=== PATIENT | male | born 1945 | race Caucasian/White ===

== ENCOUNTER → 2022-12-08 | Outpatient (CLI) | payer SELFPAY ==
[2022-12-08 09:28] VITALS: BP 145/74
[2022-12-08 09:33] VITALS: BP 145/88
== END ==
LOC: SDC 08:17
PROVIDERS: ATTEND Nurse Practitioner Family
DX: J18.9 Pneumonia, unspecified organism (principal); Z79.2 Long term (current) use of antibiotics
CPT/HCPCS: 36410; 76937; C1751

== ENCOUNTER → 2022-12-10 | Outpatient (REF) | payer SELFPAY | LOC: LAB 00:41 | PROVIDERS: ATTEND Internal Medicine | DX: Z01.89 Encounter for other specified special examinations (principal) | CPT/HCPCS: 36415; 80202 ==

== ENCOUNTER 2022-12-29 14:25 | Inpatient (IN) | payer MEDICARE ==
[2022-12-29] VITALS (11 sets, daily range): BP systolic 108–175; BP diastolic 62–82
[~2022-12-29] VITALS: Ht 172.7 cm; Wt 169.7 kg
[2022-12-29] MEDS ORDERED: NS IV 1000 ML 1,000 ML IV SCH (14:45)
[2022-12-29] MEDS ORDERED: CEFEPIME INJECTION 1,000 MG in NS (IVPB) 50 ML IV ONE (14:45)
--- NOTE | 2022-12-29 14:48 | ED General ---
General Chief Complaint: General Problems/Pain Stated Complaint: PNEUMONIA Source of Information: Patient Exam Limitations: No Limitations History of Present Illness Date Seen by Provider: Dec 29, 2022 Time Seen by Provider: 14:44 Initial Comments Patient is a 77-year-old male with a history of acute respiratory failure with hypoxia, Parkinson's disease, essential hypertension, lipidemia, BPH with frequent urinary tract infections, who was brought to the ED by EMS [facility] for elevated white blood count. Patient Had lab work drawn today had a white blood count of 20.4. Patient was diagnosed with pneumonia a few months ago. Has been on several rounds of antibiotics since November. He also was placed on prednisone in November and December for a cough. He had a chest x-ray performed on December 19 that showed left basilar pneumonia. He is not currently on any antibiotics or steroids at this time. He has been using a nebulizer machine at [facility] re[facility] to help with his cough and shortness of breath. He states the coughing seemed to be getting proving until yesterday with con tinuous cough. Some shortness of breath. Does wear 4 L at [facility]. Currently on 5 L on arrival. Denies of any specific chest pain, abdominal pain, fever, vomiting or diarrhea headache, sore throat, leg swelling, ear pain, abdominal pain. He states he was recently admitted to [facility] for acute respiratory failure with hypoxia. He states he has been rehabbing since that discharge. He also reports frequent urination over the past few days. Patient is alert and orient x3. Allergies and Home Medications Allergies Coded Allergies: No Known Drug Allergies (Unverified , 12/29/22) Patient Home Medication List Home Medication List Reviewed: Yes Acetaminophen (Tylenol) 325 Mg Tablet, 650 MG PO Q6H PRN for PAIN-MILD (1-4) OR TEMPATURE, (Reported) Entered as Reported by: ROSMERY CONCEPCION on 12/30/22933 Last Action: Reviewed Albuterol Sulfate (Albuterol Sulfate) 2.5 Mg/0.5 Ml Vial.neb, 2.5 MG INH TID, (Reported) Entered as Reported by: ROSMERY CONCEPCION on 12/30/22933 Last Action: Reviewed Amlodipine Besylate (Amlodipine Besylate) 10 Mg Tablet, 10 MG PO HS, (Reported) Entered as Reported by: ROSMERY CONCEPCION on 12/30/22933 Last Action: Reviewed Bisacodyl (Bisacodyl) 10 Mg Supp.rect, 10 MG RC DAILY PRN for CONSTIPATION-4TH LINE, (Reported) Entered as Reported by: ROSMERY CONCEPCION on 12/30/22933 Last Action: Reviewed Calcium Carbonate (Calcium Carbonate) 200 Mg Calcium (500 Mg) Tab.chew, 500 MG PO Q6H PRN for REFLUX, (Reported) Entered as Reported by: ROSMERY CONCEPCION on 12/30/22933 Last Action: Reviewed Cyanocobalamin (Vitamin B-12) (Vitamin B-12) 1,000 Mcg Tablet, 1,000 MCG PO 0900, (Reported) Entered as Reported by: ROSMERY CONCEPCION on 12/30/22933 Last Action: Reviewed Docusate Sodium (Docusate Sodium) 100 Mg Capsule, 100 MG PO 0900, (Reported) Entered as Reported by: ROSMERY CONCEPCION on 12/30/22933 Last Action: Reviewed Finasteride (Finasteride) 5 Mg Tablet, 5 MG PO 0900, (Reported) Entered as Reported by: ROSMERY CONCEPCION on 12/30/22933 Last Action: Reviewed Guaifenesin (Mucinex) 600 Mg Tab.er.12h, 600 MG PO BID PRN for COUGH/CONGESTION, (Reported) Entered as Reported by: ROSMERY CONCEPCION on 12/30/22933 Last Action: Reviewed Heparin Sodium,Porcine/Pf (Heparin Lock Flush 10 Units/ml) 10 Unit/Ml Vial, 3 ML IV BID, (Reported) Entered as Reported by: ROSMERY CONCEPCION on 12/30/22933 Last Action: Reviewed Hydrocodone/Acetaminophen (Hydrocodone-Acetamin 5-325 mg) 5 Mg-325 Mg Tablet, 1 TAB PO Q8H PRN for PAIN-MODERATE (5-7), (Reported) Entered as Reported by: ROSMERY CONCEPCION on 12/30/22933 Last Action: Reviewed Ipratropium/Albuterol Sulfate (Iprat-Albut 0.5-3(2.5) mg/3 ml) 0.5 Mg-3 Mg (2.5 Mg Base)/3 Ml Ampul.neb, 3 ML IH Q4H PRN for SHORTNESS OF BREATH, (Reported) Entered as Reported by: ROSMERY CONCEPCION on 12/30/22933 Last Action: Reviewed Lactulose (Lactulose) 20 Gram/30 Ml Solution, 30 ML PO DAILY PRN for CONSTIPATION-3RD LINE, (Reported) Entered as Reported by: ROSMERY CONCEPCION on 12/30/22933 Last Action: Reviewed Loratadine (Loratadine) 10 Mg Tablet, 10 MG PO 1000, (Reported) Entered as Reported by: ROSMERY CONCEPCION on 12/30/22933 Last Action: Reviewed Melatonin (Melatonin) 3 Mg Tablet, 6 MG PO HS PRN for INSOMNIA, (Reported) Entered as Reported by: ROSMERY CONCEPCION on 12/30/22933 Last Action: Reviewed Montelukast Sodium (Montelukast Sodium) 10 Mg Tablet, 10 MG PO DAILY, (Reported) Entered as Reported by: ROSMERY CONCEPCION on 12/30/22933 Last Action: Reviewed Ondansetron (Ondansetron Odt) 4 Mg Tab.rapdis, 4 MG SL Q6H PRN for NAUSEA/VOMITING-1ST LINE, (Reported) Entered as Reported by: ROSMERY CONCEPCION on 12/30/22933 Last Action: Reviewed Pantoprazole Sodium (Pantoprazole Sodium) 40 Mg Tablet.dr, 40 MG PO 0600, (Reported) Entered as Reported by: ROSMERY CONCEPCION on 12/30/22933 Last Action: Reviewed Polyethylene Glycol 3350 (Miralax) 17 Gram Powd.pack, 17 GM PO 0900, (Reported) Entered as Reported by: ROSMERY CONCEPCION on 12/30/22933 Last Action: Reviewed Rivaroxaban (Xarelto) 2.5 Mg Tablet, 2.5 MG PO BID, (Reported) Entered as Reported by: ROSMERY CONCEPCION on 12/30/22933 Last Action: Reviewed Ropinirole HCl (Ropinirole HCl) 1 Mg Tablet, 1 MG PO 2300, (Reported) Entered as Reported by: ROSMERY CONCEPCION on 12/30/22933 Last Action: Reviewed Sodium Chloride 0.9 % (Flush) ([place] Sodium Chlor Flush) 0.9 % Syringe, 10 ML IJ BID, (Reported) Entered as Reported by: ROSMERY CONCEPCION on 12/30/22942 Last Action: Reviewed Sulfamethoxazole/Trimethoprim (Bactrim Ds Tablet) 1 Each Tablet, 1 EACH PO BID Prescribed by: MARKELL SANTOS on 12/30/22 1146 Tamsulosin HCl (Flomax) 0.4 Mg Cap, 0.4 MG PO HS, (Reported) Entered as Reported by: ROSMERY CONCEPCION on 12/30/22 0934 Last Action: Reviewed Review of Systems Review of Systems Constitutional: No chills, No diaphoresis, No malaise; weakness EENTM: No blurred vision, No double vision Respiratory: cough, short of breath Cardiovascular: No chest pain Gastrointestinal: No abdominal pain, No diarrhea, No nausea, No vomiting Genitourinary: No decreased output, No discharge; frequency Musculoskeletal: No back pain, No joint pain, No muscle pain, No neck pain Skin: No change in color, No change in hair/nails Psychiatric/Neurological: Denies Anxiety, Denies Depressed All Other Systems Reviewed Negative Unless Noted: Yes Physical Exam Vital Signs Vital Signs - First Documented 12/29/22 14:25 Temp 37.3 Pulse 77 Resp 18 B/P (MAP) 145/59 (87) Pulse Ox 97 O2 Delivery Nasal Cannula O2 Flow Rate 4.00 Capillary Refill : Height, Weight, BMI Height: '" Weight: lbs. oz. kg; BMI Method: General Appearance: No Apparent Distress, WD/WN Eyes: Bilateral Eye Normal Inspection, Bilateral Eye PERRL, Bilateral Eye EOMI HEENT: PERRL/EOMI, TMs Normal, Normal ENT Inspection, Pharynx Normal Neck: Full Range of Motion, Normal Inspection, Non Tender, Supple Respiratory: Chest Non Tender, Lungs Clear, Normal Breath Sounds, No Accessory Muscle Use Cardiovascular: Regular Rate, Rhythm, No Edema, No Gallop, No JVD Gastrointestinal: Normal Bowel Sounds, No Organomegaly, No Pulsatile Mass Back: Normal Inspection, No CVA Tenderness, No Vertebral Tenderness Extremity: Normal Capillary Refill, Normal Inspection, Normal Range of Motion, Non Tender Neurologic/Psychiatric: Alert, Oriented x3, No Motor/Sensory Deficits, Normal Mood/Affect, lockmaker II-XII Norm as Tested Skin: Normal Color, Warm/Dry Focused Exam Lactate Level 12/29/22 14:25: Lactic Acid Level 1.08 Lactic Acid Level Laboratory Tests Test 12/29/22 14:25 Lactic Acid Level 1.08 MMOL/L (0.50-2.00) Progress/Results/Core Measures Suspected Sepsis SIRS Temperature: Pulse: Respiratory Rate: Laboratory Tests 12/29/22 14:25: White Blood Count 23.1H Blood Pressure / Mean: 12/29/22 14:25: Lactic Acid Level 1.08 Laboratory Tests 12/29/22 14:25: Creatinine 0.73, INR Comment 1.2, Platelet Count 252, Total Bilirubin 0.6 Results/Orders Lab Results Laboratory Tests Test 12/29/22 14:25 12/29/22 15:11 12/29/22 15:34 Range/Units White Blood Count 23.1 H 4.3-11.0 10^3/uL Red Blood Count 3.69 L 4.30-5.52 10^6/uL Hemoglobin 11.8 L 13.3-17.7 g/dL Hematocrit 35 L 40-54 % Mean Corpuscular Volume 95 80-99 fL Mean Corpuscular Hemoglobin 32 25-34 pg Mean Corpuscular Hemoglobin Concent 34 32-36 g/dL Red Cell Distribution Width 12.3 10.0-14.5 % Platelet Count 252 130-400 10^3/uL Mean Platelet Volume 9.4 9.0-12.2 fL Immature Granulocyte % (Auto) 1 % Neutrophils (%) (Auto) 88 H 42-75 % Lymphocytes (%) (Auto) 4 L 12-44 % Monocytes (%) (Auto) 7 0-12 % Eosinophils (%) (Auto) 0 0-10 % Basophils (%) (Auto) 0 0-10 % Neutrophils # (Auto) 20.3 H 1.8-7.8 10^3/uL Lymphocytes # (Auto) 1.0 1.0-4.0 10^3/uL Monocytes # (Auto) 1.6 H 0.0-1.0 10^3/uL Eosinophils # (Auto) 0.1 0.0-0.3 10^3/uL Basophils # (Auto) 0.1 0.0-0.1 10^3/uL Immature Granulocyte # (Auto) 0.1 0.0-0.1 10^3/uL Neutrophils % (Manual) 93 % Lymphocytes % (Manual) 3 % Monocytes % (Manual) 4 % Blood Morphology Comment NORMAL Prothrombin Time 15.2 H 12.2-14.7 SEC INR Comment 1.2 0.8-1.4 Activated Partial Thromboplast Time 45 H 24-35 SEC Sodium Level 132 L 135-145 MMOL/L Potassium Level 4.4 3.6-5.0 MMOL/L Chloride Level 96 L 98-107 MMOL/L Carbon Dioxide Level 27 21-32 MMOL/L Anion Gap 9 5-14 MMOL/L Blood Urea Nitrogen 11 7-18 MG/DL Creatinine 0.73 0.60-1.30 MG/DL Estimat Glomerular Filtration Rate 94 BUN/Creatinine Ratio 15 Glucose Level 107 H 70-105 MG/DL Lactic Acid Level 1.08 0.50-2.00 MMOL/L Calcium Level 9.4 8.5-10.1 MG/DL Corrected Calcium 10.0 8.5-10.1 MG/DL Total Bilirubin 0.6 0.1-1.0 MG/DL Aspartate Amino Transf (AST/SGOT) 14 5-34 U/L Alanine Aminotransferase (ALT/SGPT) 11 0-55 U/L Alkaline Phosphatase 55 40-136 U/L Troponin I < 0.028 <0.028 NG/ML B-Type Natriuretic Peptide 27.7 <100.0 PG/ML Total Protein 6.5 6.4-8.2 GM/DL Albumin 3.3 3.2-4.5 GM/DL Influenza Type A (RT-PCR) Not Detected Not Detecte Influenza Type B (RT-PCR) Not Detected Not Detecte SARS-CoV-2 RNA (RT-PCR) Not Detected Not Detecte Urine Color YELLOW Urine Clarity CLEAR Urine pH 6.5 5-9 Urine Specific [place] <=1.005 1.016-1.022 Urine Protein NEGATIVE NEGATIVE Urine Glucose (UA) NEGATIVE NEGATIVE Urine Ketones NEGATIVE NEGATIVE Urine Nitrite NEGATIVE NEGATIVE Urine Bilirubin NEGATIVE NEGATIVE Urine Urobilinogen 2.0 < = 1.0 MG/DL Urine Leukocyte Esterase 2+ H NEGATIVE Urine RBC (Auto) TRACE-I H NEGATIVE Urine RBC NONE /HPF Urine WBC 25-50 H /HPF Urine Squamous Epithelial Cells 0-2 /HPF Urine Crystals NONE /LPF Urine Bacteria FEW H /HPF Urine Casts NONE /LPF Urine Mucus NEGATIVE /LPF Urine Culture Indicated CULTURE PENDING My Orders Orders - TATIANA DUNHAM Cbc With Automated Diff (12/29/22 14:43) Comprehensive Metabolic Panel (12/29/22 14:43) Blood Culture (12/29/22 14:43) Sputum Culture (12/29/22 14:43) Urinalysis (12/29/22 14:43) Urine Culture (12/29/22 14:43) Protime With Inr (12/29/22 14:43) Partial Thromboplastin Time (12/29/22 14:43) Chest 1 View, Ap/Pa Only (12/29/22 14:43) Ed Iv/Invasive Line Start (12/29/22 14:43) Troponin I [facility] (12/29/22 14:43) Vital Signs Adult Sepsis Patie Q15M (12/29/22 14:43) Lactic Acid Analyzer (12/29/22 14:43) Influenza A And B By Pcr (12/29/22 14:43) Ns Iv 1000 Ml (Sodium Chloride 0.9%) (12/29/22 14:45) Cefepime Injection (Maxipime Injection) (12/29/22 14:45) Covid 19 Inhouse Test (12/29/22 14:43) Bnp [facility] (12/29/22 14:43) Manual Differential (12/29/22 14:25) Ct Angio Chest W (R/O Pe) (12/29/22 16:41) Ed Admission (Communication) (12/29/22 16:42) Iohexol Injection (Omnipaque 350 Mg/Ml 1 (12/29/22 17:00) Ns (Ivpb) (Sodium Chloride 0.9% Ivpb Bag (12/29/22 17:00) Vancomycin Injection (Vancomycin Injecti (12/29/22 17:45) Medications Given in ED Vital Signs/I&O 12/29/22 12/29/22 12/29/22 14:25 14:25 17:48 Temp 37.3 Pulse 77 78 Resp 18 18 B/P (MAP) 145/59 (87) 121/69 Pulse Ox 97 97 O2 Delivery Nasal Cannula Nasal Cannula O2 Flow Rate 4.00 5.00 12/30/22 00:00 Intake Total 1050 ml Balance 1050 ml Capillary Refill : Departure Communication (PCP) Reviewed previous H&P's, lab testing, outpatient H&P's. Differential diagnosis of pneumonia, UTI, CHF patient was admitted to [facility] August 01 2022 secondary to respiratory failure with hypoxia. Patient was admitted and discharged to [place]. Patient was then transferred over to [facility]. Patient states over the past month and a half has been diagnosed with pneumonia. Received IV Rocephin, vancomycin and prednisone with 's some improvement over the past month. Over the past few days increasing cough. Wears 4 L oxygen at home. On arrival EMS increase patient oxygen to 5 L secondary to hypoxia. Patient does not appear tachypneic or increased work of breathing. Patient afebrile. Due to the elevated white blood count from lab work drawn today and recently diagnosed pneumonia. General lab work, blood cultures, lactic acid, COVID, influenza, chest x-ray with cardiac work-up. No known cardiac history. CBC showed white blood count of 23.1. Hemoglobin of 11. Sodium 132, chloride 96. Patient does report frequent urination over the past few days. History of urinary tract infections. Urinalysis was positive for UTI with leukocytes +2, white blood count 25-50. Normal troponin and BNP. COVID influenza negative. Chest x-ray concerning for left pleural effusion, superimposed pneumonia. Patient was given cefepime and vancomycin here in the ED for potential hospital-acquired pneumonia. Due to the elevated white blood count, pneumonia concerning for hospital-acquired patient will be admitted for IV antibiotics. Patient was discussed with Dr. Santos hospitalist. Agreed to accept patient. He recommend CT scan of the chest before admission. Due to this reoccurring pneumonia with pleural effusion rule out other potential etiologies such as mass, abscess. CT scan of the chest was negative for acute abnormality. Patient will be admitted for further evaluation for this elevated white blood count. Treat for UTI Impression Primary Impression: Pneumonia Additional Impressions: UTI (urinary tract infection) Pleural effusion Leukocytosis Disposition: ADMITTED INPATIENT Condition: Stable Admissions Decision to Admit Reason: Admit from ER (General) Decision to Admit/Date: Dec 29, 2022 Time/Decision to Admit Time: 16:41 Departure-Patient Inst. Referrals: CINTHIA LÓPEZ MD (PCP) Primary Care Physician Scripts Sulfamethoxazole/Trimethoprim (Bactrim Ds Tablet) 1 Each Tablet 1 EACH PO BID for 7 Days, #14 TAB Prov: MARKELL SANTOS MD 12/30/22 TATIANA DUNHAM Dec 29, 2022 14:48
[2022-12-29 14:55] LABS: BASOPHILS # (AUTO) 0.1 10^3/uL (0.0-0.1); BASOPHILS % (AUTO) 0 % (0-10); EOSINOPHILS # (AUTO) 0.1 10^3/uL (0.0-0.3); EOSINOPHILS % (AUTO) 0 % (0-10); HEMATOCRIT 35 % (40-54); HEMOGLOBIN 11.8 g/dL (13.3-17.7); LYMPHOCYTES % (AUTO) 4 % (12-44); MEAN CORPUSCULAR HEMOGLOBIN 32 pg (25-34); MEAN CORPUSCULAR HGB CONC 34 g/dL (32-36); MEAN CORPUSCULAR VOLUME 95 fL (80-99); MEAN PLATELET VOLUME 9.4 fL (9.0-12.2); MONOCYTES # (AUTO) 1.6 10^3/uL (0.0-1.0); MONOCYTES % (AUTO) 7 % (0-12); NEUTROPHILS # (AUTO) 20.3 10^3/uL (1.8-7.8); NEUTROPHILS % (AUTO) 88 % (42-75); PLATELET COUNT 252 10^3/uL (130-400); WHITE BLOOD COUNT 23.1 10^3/uL (4.3-11.0)
[2022-12-29 15:00] LABS: ALBUMIN 3.3 GM/DL (3.2-4.5)
[2022-12-29 15:01] LABS: CHLORIDE 96 MMOL/L (98-107); POTASSIUM 4.4 MMOL/L (3.6-5.0); SODIUM 132 MMOL/L (135-145)
[2022-12-29 15:02] LABS: CALCIUM 9.4 MG/DL (8.5-10.1)
[2022-12-29 15:03] LABS: GLUCOSE 107 MG/DL (70-105); TOTAL PROTEIN 6.5 GM/DL (6.4-8.2)
[2022-12-29 15:04] LABS: CARBON DIOXIDE 27 MMOL/L (21-32)
[2022-12-29 15:05] LABS: BILIRUBIN,TOTAL 0.6 MG/DL (0.1-1.0)
[2022-12-29 15:06] LABS: ALKALINE PHOSPHATASE 55 U/L (40-136)
[2022-12-29 15:07] LABS: CREATININE SERUM 0.73 MG/DL (0.60-1.30); GFR ESTIMATED 94
[2022-12-29 15:08] LABS: BUN/CREATININE RATIO 15
[2022-12-29 15:09] LABS: ALANINE AMINOTRANSFERASE 11 U/L (0-55)
[2022-12-29 15:13] LABS: LYMPHOCYTES % (MANUAL) 3 %; MONOCYTES % (MANUAL) 4 %; NEUTROPHILS % (MANUAL) 93 %; RBC MORPH NORMAL
--- NOTE | 2022-12-29 15:14 | Diagnostic Imaging Report ---
Indication: Cough Frontal chest obtained at 3:08 p.m. There is no prior study for comparison. There is cardiomegaly with central vascular congestion. There is a left sided pleural effusion with passive atelectasis or infiltrate in the left base. There is no pneumothorax. Impression: Cardiomegaly with central vascular congestion with moderate-sized left pleural effusion with passive atelectasis versus infiltrate in the left base. Dictated by: Dictated on workstation # [id number]
[2022-12-29 15:48] LABS: BILIRUBIN,URINE NEGATIVE (NEGATIVE); CLARITY,URINE CLEAR; COLOR,URINE YELLOW; GLUCOSE, URINE (UA) NEGATIVE (NEGATIVE); KETONES,URINE NEGATIVE (NEGATIVE); LEUKOCYTE ESTERASE ,URINE 2+ (NEGATIVE); NITRITE,URINE NEGATIVE (NEGATIVE); PH,URINE 6.5 (5-9); PROTEIN,URINE NEGATIVE (NEGATIVE)
[2022-12-29 15:54] LABS: INR 1.2 (0.8-1.4); PROTHROMBIN TIME PATIENT 15.2 SEC (12.2-14.7)
[2022-12-29 16:20] LABS: BACTERIA,URINE FEW /HPF; SQUAMOUS EPITHELIAL CELL,UR 0-2 /HPF; WBC,URINE 25-50 /HPF
[2022-12-29] MEDS ORDERED: NS 100 ML (IVPB) BAG IV ONE (17:00)
[2022-12-29] MEDS ORDERED: IOHEXOL 350 MG/ML 100 ML (OMNIPAQUE 350) VIAL IV ONE (17:00)
[2022-12-29] MEDS ORDERED: VANCOMYCIN INJECTION 1,000 MG in NS (IVPB) 250 ML IV ONE (17:45)
--- NOTE | 2022-12-29 17:48 | Diagnostic Imaging Report ---
INDICATION: Left chest pain and cough. TECHNIQUE: CTA of the thorax is performed after bolus intravenous administration of iodinated contrast. 3D reformatted images are also produced. Automatic exposure controls were utilized to keep dose as low as reasonably achievable. FINDINGS: There is good opacification of pulmonary arteries without intraluminal filling defect to indicate embolism. Thoracic aorta is of normal caliber with mild calcification at the aortic valve. Coronary artery calcifications are also noted. There is generalized cardiomegaly with prominent epicardial fat pad in the left lower hemithorax. Combination of cardiomegaly and epicardial fat results in mild linear atelectasis and/or scarring in the left lung base. There is also mild linear atelectasis in the right lung base. There is no evidence of focal infiltrate, mass or pathologic adenopathy within the thorax. IMPRESSION: No CTA evidence of pulmonary embolism or other acute abnormality within the thorax. Dictated by: Dictated on workstation # [id number]
[2022-12-29] MEDS ORDERED: ENOXAPARIN 40 MG/0.4 ML (LOVENOX) SYR SC SCH (18:30)
[2022-12-29] MEDS ORDERED: ONDANSETRON 4 MG (ZOFRAN) ORAL DISSOLVE TAB PO PRN (18:30)
[2022-12-29] MEDS ORDERED: LACTULOSE SYRUP 10GM/15ML (ENULOSE) 30ML UDC PO PRN (18:30)
[2022-12-29] MEDS ORDERED: ANTACID SUSP 30 ML UDC (MYLANTA) PO PRN (18:30)
[2022-12-29] MEDS ORDERED: NS IV 500 ML 500 ML IV PRN (18:30)
[2022-12-29] MEDS ORDERED: MELATONIN 3 MG TABLET PO PRN (18:30)
[2022-12-29] MEDS ORDERED: CALCIUM CARBONATE 500 MG (TUMS) TAB.CHEW PO PRN (18:30)
[2022-12-29] MEDS ORDERED: ACETAMINOPHEN 325 MG TABLET PO PRN (18:30)
[2022-12-29] MEDS ORDERED: ONDANSETRON 4 MG/2 ML (SDV) Z0FRAN IV PRN (18:30)
[2022-12-29] MEDS ORDERED: polyethylene glycoL POWDER 17 GM (MIRALAX) PACK PO PRN (18:30)
[2022-12-29] MEDS ORDERED: MILK OF MAGNESIA 400 MG/5 ML 30 ML UDC PO PRN (18:30)
[2022-12-29] MEDS ORDERED: BISACODYL 10 MG SUPP (DULCOLAX) PR PRN (18:30)
[2022-12-29] MEDS ORDERED: CEFEPIME INJECTION 1,000 MG in NS (IVPB) 50 ML IV SCH (18:30)
[2022-12-29] MEDS ORDERED: VANCOMYCIN INJECTION 0.1 MG in NS (IVPB) 250 ML IV SCH (18:30)
[2022-12-29] MEDS ORDERED: VANCOMYCIN 1 GM/NS 250 ML IVPB IV NR ×2 (19:00)
[2022-12-29] MEDS: CEFEPIME INJECTION 1,000 MG in NS (IVPB) 50 ML IV SCH (21:23)
[2022-12-29] MEDS: DOCUSATE SODIUM 100 MG (COLACE) CAP PO SCH (21:24)
[2022-12-29] MEDS: ENOXAPARIN 60 MG/0.6 ML (LOVENOX) SYR SC SCH (21:24)
[2022-12-29] MEDS: SENNOSIDES 8.6 MG (SENOKOT) TAB PO SCH (21:24)
[2022-12-29] MEDS: RT-ALBUTEROL/IPRATROPIUM 3 ML (DUONEB) VIAL INH SCH (22:07)
[2022-12-30 00:15] VITALS: BP 167/77
[2022-12-30] MEDS: RT-ALBUTEROL/IPRATROPIUM 3 ML (DUONEB) VIAL INH SCH ×4 (03:13→15:03)
[2022-12-30 04:06] VITALS: BP 129/83
[2022-12-30] MEDS: CEFEPIME INJECTION 1,000 MG in NS (IVPB) 50 ML IV SCH ×3 (04:06→15:58)
[2022-12-30] MEDS ORDERED: POTASSIUM BICARB 20 MEQ (EFFER-K) TABLET PO SCH (06:00)
[2022-12-30] MEDS ORDERED: KCL 20 MEQ TAB (K-DUR) PO SCH (06:00)
[2022-12-30] MEDS ORDERED: POTASSIUM CL 10MEQ/50ML IVPB 50 ML IV SCH (06:00)
[2022-12-30] MEDS ORDERED: MAGNESIUM 1 GM/100 ML IVPB 100 ML IV SCH (06:00)
[2022-12-30 06:02] LABS: BASOPHILS # (AUTO) 0.1 10^3/uL (0.0-0.1); BASOPHILS % (AUTO) 0 % (0-10); EOSINOPHILS # (AUTO) 0.1 10^3/uL (0.0-0.3); EOSINOPHILS % (AUTO) 1 % (0-10); HEMATOCRIT 34 % (40-54); HEMOGLOBIN 11.3 g/dL (13.3-17.7); LYMPHOCYTES # (AUTO) 1.3 10^3/uL (1.0-4.0); LYMPHOCYTES % (AUTO) 8 % (12-44); MEAN CORPUSCULAR HEMOGLOBIN 32 pg (25-34); MEAN CORPUSCULAR HGB CONC 33 g/dL (32-36); MEAN CORPUSCULAR VOLUME 97 fL (80-99); MEAN PLATELET VOLUME 9.6 fL (9.0-12.2); MONOCYTES # (AUTO) 1.5 10^3/uL (0.0-1.0); MONOCYTES % (AUTO) 9 % (0-12); NEUTROPHILS # (AUTO) 14.5 10^3/uL (1.8-7.8); NEUTROPHILS % (AUTO) 83 % (42-75); PLATELET COUNT 223 10^3/uL (130-400); WHITE BLOOD COUNT 17.5 10^3/uL (4.3-11.0)
[2022-12-30 06:31] LABS: CALCIUM 9.2 MG/DL (8.5-10.1); CREATININE SERUM 0.83 MG/DL (0.60-1.30); MAGNESIUM 1.8 MG/DL (1.6-2.4); POTASSIUM 4.4 MMOL/L (3.6-5.0)
[2022-12-30] MEDS: ENOXAPARIN 60 MG/0.6 ML (LOVENOX) SYR SC SCH (06:37)
[2022-12-30] MEDS ORDERED: VANCOMYCIN 1500MG/300ML PREMIX IV SCH (07:00)
[2022-12-30 07:06] VITALS: BP 127/61
[2022-12-30] MEDS ORDERED: RIVA2.5T5 PO (09:34)
[2022-12-30] MEDS ORDERED: ROPI1TAB PO (09:34)
[2022-12-30] MEDS ORDERED: GUAI600T43 PO (09:34)
[2022-12-30] MEDS ORDERED: PANT40TA52 PO (09:34)
[2022-12-30] MEDS ORDERED: ACET325T38 PO (09:34)
[2022-12-30] MEDS ORDERED: BISA10SU8 RC (09:34)
[2022-12-30] MEDS ORDERED: ONDA4TAB11 SL (09:34)
[2022-12-30] MEDS ORDERED: TMSL.4C PO (09:34)
[2022-12-30] MEDS ORDERED: FINA5TAB6 PO (09:34)
[2022-12-30] MEDS ORDERED: ACHD5005 PO (09:34)
[2022-12-30] MEDS ORDERED: IPRA3AMP31 IH (09:34)
[2022-12-30] MEDS ORDERED: MONT-40 PO (09:34)
[2022-12-30] MEDS ORDERED: MELA3TAB39 PO (09:34)
[2022-12-30] MEDS ORDERED: POLY17PO6 PO (09:34)
[2022-12-30] MEDS ORDERED: AMLO-251 PO (09:34)
[2022-12-30] MEDS ORDERED: CYAN-41 PO (09:34)
[2022-12-30] MEDS ORDERED: LORA10TA7 PO (09:34)
[2022-12-30] MEDS ORDERED: ALB0.5V INH (09:34)
[2022-12-30] MEDS ORDERED: DOCU100C37 PO (09:34)
[2022-12-30] MEDS ORDERED: [UNRECOGNIZED DRUG - CODE] IV (09:34)
[2022-12-30] MEDS ORDERED: CALC500T47 PO (09:34)
[2022-12-30] MEDS ORDERED: LACT20SO2 PO (09:34)
[2022-12-30] MEDS ORDERED: SODI10SY5 IJ (09:43)
[2022-12-30] MEDS: MAGNESIUM 1 GM/100 ML IVPB 100 ML IV SCH ×2 (10:25→10:26)
[2022-12-30] MEDS: DOCUSATE SODIUM 100 MG (COLACE) CAP PO SCH (10:26)
[2022-12-30] MEDS: SENNOSIDES 8.6 MG (SENOKOT) TAB PO SCH (10:26)
[2022-12-30 11:01] VITALS: BP 140/67
[2022-12-30] MEDS ORDERED: SULF1TAB38 PO (11:46)
--- NOTE | 2022-12-30 12:49 | Short Stay Summary-Hospitalist ---
NAYELI AKHTAR 12/30/22 1249: History of Present Illness HPI/Chief Complaint Johnathan Ramires is a 77yo male presenting from [facility] due to elevated WBC around 20.4, dyspnea/cough, and urinary urgency. Pt states that he is currently doing well. Pt typically wears about 4L of oxygen back at [facility], and is below his baseline currently at 3L with an oxygen saturation of 97%. Pt denies any chest pain, abdominal pain, N/V/D; Pt endorses b/l numbness and tingling of LE. Date Seen 12/30/22 Attending Physician Joseph Acosta MD PCP Admitting Physician: Markell Santos MD Attending Physician: Markell Santos MD Referring Physician Date of Admission Dec 29, 2022 at 17:49 Home Medications & Allergies Home Medications Reviewed patient Home Medication Reconciliation performed by pharmacy medication reconciliations iv technician and/or nursing. Patients Allergies have been reviewed. Allergies Allergies Coded Allergies No Known Drug Allergies (Unverified12/29/22) Past Medical/Social/Family Hx Patient Social History Tobacco Use?: No Substance use?: No Alcohol Use?: No Pt stated abuse/neglect: No Immunizations Up To Date Influenza Vaccine Up-to-Date: No; Not Current First/Initial COVID19 Vaccinat: YES Second COVID19 Vaccination Kalyan: YES Current Status Advance Directives: Yes Advance Directive Location: Unable to obtain copy Communicates: Verbally Primary Language: Swazi Preferred Spoken Language: Swazi Is interpretation needed?: No Sensory deficits: Vision impairment Implanted or Applied Medical D: None Review of Systems Constitutional: No chills, No fever Cardiovascular: No chest pain, No palpitations Gastrointestinal: No abdominal pain, No diarrhea, No nausea, No vomiting Genitourinary: frequency, other (Urgency ) Psychiatric/Neurological: Numbness (LE B/l), Paresthesia (LE B/l), Tingling (LE b/l) Physical Exam Physical Exam Vital Signs Vital Signs - First Documented 12/29/22 14:25 Temp 37.3 Pulse 77 Resp 18 B/P (MAP) 145/59 (87) Pulse Ox 97 O2 Delivery Nasal Cannula O2 Flow Rate 4.00 Capillary Refill : Less Than 3 Seconds Height, Weight, BMI Height: '" Weight: lbs. oz. kg; 56.89 BMI Method: General Appearance: No Apparent Distress, WD/WN Respiratory: Chest Non Tender, Lungs Clear, Normal Breath Sounds, No Accessory Muscle Use Cardiovascular: Regular Rate, Rhythm, No Edema, No Gallop, No JVD Gastrointestinal: Normal Bowel Sounds, No Organomegaly, No Pulsatile Mass Back: Normal Inspection Extremity: Normal Capillary Refill, Normal Inspection, Normal Range of Motion, Non Tender Neurologic/Psychiatric: Alert, Oriented x3, Normal Mood/Affect Skin: Normal Color, Warm/Dry Results Results/Procedures Labs Laboratory Tests 12/29/22 14:25 12/30/22 05:32 12/30/22 05:36 Patient resulted labs reviewed. Imaging CHEST 1 VIEW, AP/PA ONLY Indication: Cough Frontal chest obtained at 3:08 p.m. There is no prior study for comparison. There is cardiomegaly with central vascular congestion. There is a left sided pleural effusion with passive atelectasis or infiltrate in the left base. There is no pneumothorax. Impression: Cardiomegaly with central vascular congestion with moderate-sized left pleural effusion with passive atelectasis versus infiltrate in the left base. ate of Exam:12/29/22 CT ANGIO CHEST W (R/O PE) INDICATION: Left chest pain and cough. TECHNIQUE: CTA of the thorax is performed after bolus intravenous administration of iodinated contrast. 3D reformatted images are also produced. Automatic exposure controls were utilized to keep dose as low as reasonably achievable. FINDINGS: There is good opacification of pulmonary arteries without intraluminal filling defect to indicate embolism. Thoracic aorta is of normal caliber with mild calcification at the aortic valve. Coronary artery calcifications are also noted. There is generalized cardiomegaly with prominent epicardial fat pad in the left lower hemithorax. Combination of cardiomegaly and epicardial fat results in mild linear atelectasis and/or scarring in the left lung base. There is also mild linear atelectasis in the right lung base. There is no evidence of focal infiltrate, mass or pathologic adenopathy within the thorax. IMPRESSION: No CTA evidence of pulmonary embolism or other acute abnormality within the thorax. Short Stay Diagnosis Conclusion Plan UTI Urinalysis: LE; WBC; Bacteria Culture Indicated - Pending D/C IV Abx; Transition to Oral Medications Start Bactrim Dyspnea and Cough CXR - Cardiomegaly w/ central Vascular Congestion w/ Moderate sized Left pleural effusion v. Inflitrates Negative Troponin Normal BNP Normal Albumin CT Chest - Due to potential refractory Pneumonia - No acute PE; No infiltrates; Mild linear atelectasis and/or scarring in the left lung base; Mild linear atelectasis in the right lung base HTN GERD AFib Parkinson's Disease Restart Home Medications upon d/c f/u w/ PCP MARKELL SANTOS MD 12/30/222055: History of Present Illness Source: patient Exam Limitations: no limitations Time Seen by a Provider: 10:15 Past Medical/Social/Family Hx Family Medical History Family Hx: non-contributory Results Results/Procedures Imaging: Reviewed Imaging Report Short Stay Diagnosis Discharge Diagnosis-Short Stay Admission Diagnosis UTI Final Discharge Diagnosis UTI Conclusion Plan Presented with leukocytosis. Found to have UTI. Given prescription for Bactrim. Discharged back to [facility] in stable condition. Diagnosis/Problems Diagnosis/Problems (1) UTI (urinary tract infection) Status: Acute Qualifiers: Qualified Codes: N30.00 - Acute cystitis without hematuria (2) Leukocytosis Status: Acute (3) Super obesity Status: Chronic (4) Chronic respiratory failure with hypoxia Status: Chronic Supervisory-Addendum Brief Verification & Attestation Participated in pt care: history, MDM, physical Personally performed: exam, history, MDM, supervision of care Care discussed with: Medical Student Procedures: n/a Results interpretation: Verified all documentation A medical student performed and documented this service in my presence. I reviewed and verified all information documented by the medical student and made modifications to such information, when appropriate. I personally performed the physical exam and medical decision making. NAYELI AKHTAR Dec 30, 2022 12:49 MARKELL SANTOS MD Dec 30, 2022 20:56
[2022-12-30 16:02] VITALS: BP 140/67
--- NOTE | 2022-12-30 17:25 | Physician Query Clarification ---
Physician Query-General Query to Physician: Clinical Validation Clarification Dr Shari Santos Pneumonia has been documented in the medical record. After study, has Pneumonia been ruled out? If it has been ruled out, please d ocument Pnumonia, ruled out" in the progress notes and/or discharge summary. Yes/Agreed, Pneumonia ruled out/is not clinically valid Not agreed, Pneumonia has not been ruled out/is clinically valid* *Please document the clinical evidence supportive of this diagnosis (even if now resolved) in the Progress Notes and Discharge Summary Other, with explanation of the clinical findings Clinically undetermined, no explanation for the clinical findings Additional information: The patient, in the setting of History/Risk factors, Admitted from Rehab with "dyspnea/cough, and urinary urgency" Clinical Findings SOA with Exertion, No Cough, WBC 23.1, RR 18 on admission was not higher than this. requiring 02 at 4L on admission. CTA Chest: No CTA evidence of pulmonary embolism or other acute abnormality within the thorax. Treatment ER: Normal saline 1 L, IV dye for testing, cefepime IV, vancomycin IV, duonebs, In responding to this query, please exercise your independent professional judgment. The purpose of this communication is to more accurately reflect the complexity of your patients condition. The fact that a question is asked does not imply that any particular answer is desired or expected. Thank you for your timely response to this clarification. Jasmyne Perez, MSN, RN Clinical Cafe Assistant [phone] [email or web address] PHYSICIAN RESPONSE: Based on the clinical findings in the record, please respond to the query above on this document as an addendum. Physician Response: Physician Response Pneumonia ruled out If you have questions please contact: [employer]: Ext: Thank you for your time and cooperation. Clinical Cafe Assistant/[employer] This is a permanent part of the medical record JASMYNE PEREZ Dec 30, 2022 17:25 MARKELL SANTOS MD Dec 30, 2022 21:01
== END 2022-12-30 16:04 | DRG 690 ==
LOC: EDUNIT# 14:32 → ER 14:33 → 4TH 17:49
PROVIDERS: ADMIT Internal Medicine; ATTEND Internal Medicine
DX: N39.0 Urinary tract infection, site not specified (principal); J96.11 Chronic respiratory failure with hypoxia; Z68.43 Body mass index [BMI] 50.0-59.9, adult; E66.8 Other obesity; I10 Essential (primary) hypertension; K21.9 Gastro-esophageal reflux disease without esophagitis; I48.91 Unspecified atrial fibrillation; G20 Parkinson's disease; Z20.822 Contact with and (suspected) exposure to COVID-19
CPT/HCPCS: 36415; 71045; 71275; 80048; 80053; 81000; 83605; 83735; 83880; 84484; 85007; 85025; 85027; 85610; 85730; 87040; 87077; 87081; 87088; 87186; 87636; 94640; 94664; 94760

== ENCOUNTER 2023-04-27 06:56 | Outpatient (CLI) | payer MEDICARE, MEDICAID ==
[~2023-04-27] VITALS: Ht 170.2 cm; Wt 165.8 kg
[~2023-04-27 06:56] MED LIST: ACET325T38 PO; ACHD5005 PO; ALB0.5V INH; AMLO-251 PO; BISA10SU8 RC; CALC500T47 PO; CYAN-41 PO; DOCU100C37 PO; FINA5TAB6 PO; GUAI600T43 PO; IPRA3AMP31 IH; LACT20SO2 PO; LORA10TA7 PO; MELA3TAB39 PO; MONT-40 PO; ONDA4TAB11 SL; PANT40TA52 PO; POLY17PO6 PO; RIVA2.5T5 PO; ROPI1TAB PO; SODI10SY5 IJ; SULF1TAB38 PO; TMSL.4C PO; [UNRECOGNIZED DRUG - CODE] IV
[2023-04-27] MEDS ORDERED: FLUT15.845 NS (11:33)
== END 2023-04-27 11:39 | disposition home or self-care (01) ==
LOC: PREOP 06:56
PROVIDERS: ATTEND Surgery
DX: Z01.818 Encounter for other preprocedural examination (principal)

== ENCOUNTER 2023-05-04 07:04 | Day surgery (SDC) | payer MEDICARE, MEDICAID ==
[2023-05-04] VITALS (11 sets, daily range): BP systolic 145–184; BP diastolic 69–91
[~2023-05-04] VITALS: Ht 172.7 cm; Wt 165.8 kg
[~2023-05-04 07:04] MED LIST changes: +FLUT15.845 NS; -ROPI1TAB PO; +ROPI1TAB46 PO
[2023-05-04] MEDS ORDERED: LIDOCAINE 1% INJ 20 ML VIAL ONE (07:16)
[2023-05-04] MEDS ORDERED: proPOfol INJECTION 200 MG/20 ML VIAL IV ONE (07:23)
[2023-05-04] MEDS ORDERED: ONDANSETRON INJECTION 4 MG/2 ML (SDV) ONE (07:23)
[2023-05-04] MEDS ORDERED: fentaNYL INJECTION 100 MCG/2 ML VIAL ONE (07:23)
[2023-05-04] MEDS ORDERED: LIDOCAINE PF 2% 5 ML VIAL ONE (07:23)
[2023-05-04] MEDS ORDERED: ceFAZolin INJECTION 2,000 MG in NS (IVPB) 50 ML 50 ML IV ONE (07:30)
[2023-05-04] MEDS ORDERED: LACTATED RINGERS 1,000 ML 1,000 ML IV PRN (07:30)
--- NOTE | 2023-05-04 07:40 | Progress Note-Pre Operative ---
Pre-Operative Progress Note Date H&P Reviewed: May 04, 2023 Time H&P Reviewed: 07:35 History & Physical: H&P Reviewed, Patient Examed, No changes noted Pre-Operative Diagnosis: lesion of nose JORGE MENDES DO May 04, 2023 07:40
[2023-05-04] MEDS ORDERED: BACITRACIN OINTMENT 28 GM TUBE ONE (08:58)
[2023-05-04] MEDS ORDERED: SEVOFLURANE (ULTANE) 15 ML INHAL SOLN ONE (09:40)
[2023-05-04] MEDS ORDERED: ONDANSETRON INJECTION 4 MG/2 ML (SDV) IVP PRN (10:15)
[2023-05-04] MEDS ORDERED: morphine INJ 10 MG/ML 1ML (SYR OR VIAL) IVP ONE (10:15)
--- NOTE | 2023-05-04 11:36 | Discharge Inst-Simple/Standard ---
Discharge Inst-Standard Patient Instructions/Follow Up Plan of Care/Instructions/FU: MondayMay 10 Navarro for removal of bolster dressing. Navarro 2 weeks. Keep area clean and dry. Do not get skin graft wet. Activity as Tolerated: No Discharge Diet: Regular Diet Other Inst to Patient Follow up Appt: Make appointment for 2 week. Instructions: No lifting greater than 10 pounds. No strenuous activity. May shower in 24 hours, no tub bath or soaking. Use incentive spirometer at home as directed. No Smoking Skin/Wound Care: MondayMay 10 Navarro for removal of bolster dressing. Navarro 2 weeks. Keep area clean and dry. Do not get skin graft wet. Symptoms to Report: Appetite Changes, Extremity Discoloration, Numbness/Tingling, Swelling Increased, Bleeding Excessive, Eyesight Changes, Pain Increased, Urine Color Change, Constipation(Persistent), Fever over 101 degree F, Pain/Pressure in chest, Urinating Difficulty, Cough Up/Vomit Blood, Heart Beat Irreg/Pounding, Pain/Pressure in jaw, Vaginal Bleeding Increase, Cramps in feet or legs, Lightheadedness, Pain/Pressure in shoulder, Diarrhea(Persistent), Memory Changes Suddenly, Questions/Concerns, Weight gain consecutive days, Dizziness/Fainting, Nausea/Vomiting, Shortness of Breath, Weight gain over 2 pounds If questions or concerns contact your physician Or seek help at emergency department. JORGE NAVARRO DO May 04, 2023 11:36
--- NOTE | 2023-05-04 14:17 | Anesthesia-General Post-Op ---
General Patient Condition Mental Status/LOC: Same as Preop Cardiovascular: Satisfactory Nausea/Vomiting: Absent Respiratory: Satisfactory Pain: Controlled Complications: Absent Post Op Complications Complications None Follow Up Care/Instructions Patient Instructions None needed. Anesthesia/Patient Condition Patient Condition Patient is doing well, no complaints, stable vital signs, no apparent adverse anesthesia problems. No complications reported per nursing. ROGER BECKHAM CRNA May 04, 2023 14:17
--- NOTE | 2023-05-04 18:16 | OPERATIVE REPORT ---
DATE OF SERVICE: 05/04/2023 PREOPERATIVE DIAGNOSIS: Skin lesion, nose. POSTOPERATIVE DIAGNOSIS: Skin lesion, nose. PROCEDURE: Excision of nose lesion 2.2 x 2.2 cm with full-thickness skin graft from left chest. SURGEON: Jorge Navarro DO ANESTHESIA: General. ESTIMATED BLOOD LOSS: Minimal. COMPLICATIONS: None. INDICATIONS: The patient is a 77-year-old male with large lesion to the left nose. He understands risks and benefits of procedure and wished to proceed. Consent was signed in chart. DESCRIPTION OF PROCEDURE: The patient was taken to the operating suite where he was prepped and draped in sterile fashion. Timeout was performed. Local anesthetic was infiltrated in the left nose. Skin and subcutaneous tissue was removed from the left nose, removing the lesion. This was tagged at 12 o'clock with a Prolene suture. Once removed, hemostasis was achieved. Local anesthetic was infiltrated over the left chest. An elliptical excision of skin and subcutaneous tissue was removed. The skin was then prep for full-thickness skin graft and was attached to the left nose until a size and then suturing it with 5-0 Prolene. Once performed, the area was washed and dried and ulcer pressure dressing was made for pressure over the skin graft. The area was washed and dried. The skin on the left chest was closed with ellis. The patient tolerated the procedure well without any complications, taken to recovery room in stable condition. Job ID: [id number] DocumentID: [id number] Dictated Date: 05/04/2023 11:40:24 Secret Service Agent Date: 05/04/2023 18:14:00 Dictated By: JORGE NAVARRO DO
== END 2023-05-04 12:05 | disposition home or self-care (01) ==
LOC: SDC 07:04
PROVIDERS: ATTEND Surgery
DX: C44.311 Basal cell carcinoma of skin of nose (principal); E66.01 Morbid (severe) obesity due to excess calories; Z68.43 Body mass index [BMI] 50.0-59.9, adult; Z87.891 Personal history of nicotine dependence; Z79.01 Long term (current) use of anticoagulants
CPT/HCPCS: 87081